=== PATIENT | female | born 1945 | race Caucasian/White ===

== ENCOUNTER 2016-05-04 12:02 | Inpatient (IN) | payer OTHER, BC ==
[2016-05-04 12:29] VITALS: BMI 26.4
[2016-05-04] MEDS ORDERED: SODIUM CHLORIDE 1,000 ML IV STA (12:52)
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
[2016-05-04 14:03] LABS: BASOPHIL 0.3 % (0-2.0); MCH 30.5 pg (25.7-33.7); MCHC 32.5 g/dl (32.0-36.0); MEAN CELL VOLUME 93.8 fl (80-96); MEAN PLT VOLUME 8.3 fl (7.5-11.1); NEUTROPHILS 85.5 % (42.8-82.8); PLATELET COUNT 235 K/MM3 (134-434); RDW 15.8 % (11.6-15.6); WHITE BLOOD COUNT 16.9 K/mm3 (4.0-10.0)
[2016-05-04 14:11] LABS: URINE APPEARANCE CLOUDY; URINE BILIRUBIN NEGATIVE (NEGATIVE); URINE COLOR YELLOW; URINE GLUCOSE (UA) 3+ (NEGATIVE); URINE KETONE 1+ (NEGATIVE); URINE LEUK ESTERASE NEGATIVE (NEGATIVE); URINE NITRITE NEGATIVE (NEGATIVE); URINE UROBILINOGEN NEGATIVE E.U./dl (0.2-1.0)
[2016-05-04 14:14] LABS: URINE BLOOD 2+ (NEGATIVE); URINE PROTEIN 2+ (NEGATIVE)
[2016-05-04 14:17] LABS: YEAST MANY
[2016-05-04 14:26] LABS: ALBUMIN 2.7 g/dl (3.4-5.0); ANION GAP 19 (8-16); BILIRUBIN,TOTAL 1.5 mg/dL (0.2-1.0); CALCIUM 8.9 mg/dL (8.5-10.1); CO2 19 mmol/L (21-32); CREATININE 1.8 mg/dL (0.55-1.02); GLUCOSE,RANDOM 266 mg/dL (74-106); SGOT/AST 103 U/L (15-37); SGPT/ALT 42 U/L (12-78); TOT PROT 6.8 g/dl (6.4-8.2)
[2016-05-04 14:39] LABS: ALK PHOS 80 U/L (45-117); TROPONIN I 0.02 ng/ml (0.00-0.05)
[2016-05-04 15:39] LABS: ACETONE SERUM POSITIVE SMALL 1+ (NEGATIVE)
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
--- NOTE | 2016-05-04 18:47 | PN ---
Teaching Attending Note Name of Resident: Reshma Wood ATTENDING PHYSICIAN STATEMENT I saw and evaluated the patient. I reviewed the resident's note and discussed the case with the resident. I agree with the resident's findings and plan as documented. SUBJECTIVE: OBJECTIVE: Vital Signs Period Temp Pulse Resp BP Sys/Villatoro Pulse Ox Last 24 Hr 0/0 ASSESSMENT AND PLAN: 1. Acute kidney injury 2. Rhabdomyolysis 3. Acute delirium 4. CAD 5. HTN 6. Type 2 DM
[2016-05-04] MEDS ORDERED: NITROGLYCERIN SUBLINGUAL 1/150 0.4 MG TAB SL PRN (18:58)
--- NOTE | 2016-05-04 21:24 | EKG ---
Test Reason : Blood Pressure : / mmHG Vent. Rate : 120 BPM Atrial Rate : 120 BPM P-R Int : 132 ms QRS Dur : 086 ms QT Int : 316 ms P-R-T Axes : 047 015 -07 degrees QTc Int : 446 ms SINUS TACHYCARDIA POSSIBLE ANTERIOR INFARCT , AGE UNDETERMINED T WAVE ABNORMALITY, CONSIDER INFERIOR ISCHEMIA ABNORMAL ECG NO PREVIOUS ECGS AVAILABLE Confirmed by FAVIAN ANDERSON MD ([id number]) on 05/04/2016 9:23:56 PM Referred By: Confirmed By:FAVIAN ANDERSON MD
[2016-05-04] MEDS: HEPARIN NA (PORCINE) 5,000 UNITS/ML 1ML VIAL SQ SCH (21:55)
[2016-05-04] MEDS: SODIUM CHLORIDE 1,000 ML IV SCH (21:56)
[2016-05-04] MEDS ORDERED: ROSUVASTATIN CA 10 MG TABLET (FP) PO SCH (22:00)
[2016-05-04] MEDS: ACETAMINOPHEN 500 MG TABLET (FP) PO PRN (22:26)
[2016-05-04 22:51] LABS: CALCIUM 8.9 mg/dL (8.5-10.1); CREATININE 1.5 mg/dL (0.55-1.02)
[2016-05-05] MEDS: LEVOTHYROXINE NA 50 MCG TABLET (FP) PO SCH (06:30)
[2016-05-05] MEDS: HEPARIN NA (PORCINE) 5,000 UNITS/ML 1ML VIAL SQ SCH ×3 (06:31→21:33)
[2016-05-05 07:16] LABS: BASOPHIL 0.3 % (0-2.0); EOSINOPHIL 0.4 % (0-4.5); MCH 30.8 pg (25.7-33.7); MCHC 33.1 g/dl (32.0-36.0); MEAN PLT VOLUME 8.2 fl (7.5-11.1); NEUTROPHILS 80.8 % (42.8-82.8); PLATELET COUNT 200 K/MM3 (134-434); RDW 16.1 % (11.6-15.6); WHITE BLOOD COUNT 11.3 K/mm3 (4.0-10.0)
[2016-05-05 07:45] LABS: ALBUMIN 2.1 g/dl (3.4-5.0)
[2016-05-05 07:48] LABS: BILIRUBIN,TOTAL 1.3 mg/dL (0.2-1.0); CREATININE 1.2 mg/dL (0.55-1.02); PHOSPHOROUS 3.2 mg/dL (2.5-4.9); TOT PROT 5.7 g/dl (6.4-8.2)
[2016-05-05] MEDS ORDERED: PT OWN MED DRAWER 7, Y5N ONE (09:47)
[2016-05-05] MEDS: ATENOLOL 25 MG TABLET (FP) PO SCH (09:51)
[2016-05-05] MEDS: FOLIC ACID 1 MG TABLET (FP) PO SCH (09:51)
[2016-05-05] MEDS ORDERED: PATIENT'S OWN MEDICATION (NON-FORMULARY) (Colesevelam Hcl [Welchol (Nf)] 625 MG) PO SCH (10:00)
[2016-05-05] MEDS ORDERED: BROMOCRIPTINE MESYLATE PO SCH (10:00)
[2016-05-05] MEDS: LISINOPRIL 5 MG TABLET (FP) PO SCH (10:00)
[2016-05-05] MEDS ORDERED: MILNACIPRAN HCL 100 MG PO SCH (10:00)
[2016-05-05 10:12] LABS: FREE T4 1.13 ng/dl (0.76-1.46); THYROID STIMULATING HORMONE 1.6 uIU/ml (0.358-3.74)
[2016-05-05] MEDS: NORTRIPTYLINE HCL 25 MG CAPSULE PO SCH (11:43)
--- NOTE | 2016-05-05 14:33 | PN ---
Physical Exam: SUBJECTIVE: Patient seen and examined feels better than yesterday. denies chest/hip pain, cough, sob. has good appetite, toileting without difficulty, no BM today. OBJECTIVE: Vital Signs Period Temp Pulse Resp BP Sys/Villatoro Pulse Ox Last 24 Hr 97.6 F-100.0 F 100-113 18-18 113-141/55-85 95-98 GENERAL: The patient is awake, alert, and fully oriented, in no acute distress. HEAD: Normal with no signs of trauma. EYES: PERRL, extraocular movements intact, sclera anicteric, conjunctiva clear. No ptosis. ENT: Ears normal, nares patent, oropharynx clear without exudates, mild erythema , moist mucous membranes. thick neck. well healed scar on left lower neck. no LAD. NECK: Trachea midline, full range of motion, supple. LUNGS: Breath sounds equal, clear to auscultation bilaterally, no wheezes, no crackles, no accessory muscle use. HEART: tachycardic rate and regular rhythm, S1, S2 without murmur, rub or gallop. ABDOMEN: Soft, nontender, distended, normoactive bowel sounds, no guarding, no rebound EXTREMITIES: UE: 2+ pulses, warm, well-perfused, no edema. skin mottling improved. unable to make fist b/l. sensation intact throughout. improved range of motion at shoulders, elbow. strength 4/5 at biceps/triceps. b/l elbows with lacerations, left elbow with demuted skin, mild surrounding erythema no discharge no fluctuance. left hand with 3rd digit PCP & MCP joint, 4th MCP joint with swelling/erythema/tenderness. LE: 2+ pulses, warm, well-perfused. No calf tenderness. hammertoe on 2nd digit on right and left foot. skin mottling from feet to knees improved. b/l knee swelling and tenderness. 3/5 strength b/l legs. nontender lateral & medial hips. sensation intact throughout. NEUROLOGICAL: Cranial nerves II through XII grossly intact. Normal speech, gait steady with walker and 2-person support. PSYCH: Normal mood, normal affect. Decub ulcer covered with actagal. Laboratory Results - last 24 hr 05/04/16 05/04/16 05/04/16 21:00 21:00 21:00 WBC RBC Hgb Hct MCV MCHC RDW Plt Count MPV Neutrophils % Lymphocytes % Monocytes % Eosinophils % Basophils % Sodium 136 Potassium 4.1 Chloride 101 Carbon Dioxide 17 L Anion Gap 18 H BUN 50 H Creatinine 1.5 H Creat Clearance w eGFR Random Glucose 199 H D Hemoglobin A1c % 7.7 H Calcium 8.9 Phosphorus Magnesium Total Bilirubin AST ALT Alkaline Phosphatase C-Reactive Protein 36.4 H Total Protein Albumin TSH Free T4 Acetone, Qual 05/05/16 05/05/16 05/05/16 05:35 05:35 05:35 WBC 11.3 H D RBC 3.47 L Hgb 10.7 D Hct 32.3 L MCV 93.0 MCHC 33.1 RDW 16.1 H Plt Count 200 MPV 8.2 Neutrophils % 80.8 Lymphocytes % 8.8 D Monocytes % 9.7 Eosinophils % 0.4 D Basophils % 0.3 Sodium 140 Potassium 3.8 Chloride 107 Carbon Dioxide 20 L Anion Gap 13 BUN 44 H Creatinine 1.2 H Creat Clearance w eGFR 44.41 Random Glucose 163 H Hemoglobin A1c % Calcium 8.0 L Phosphorus 3.2 Magnesium 2.0 Total Bilirubin 1.3 H AST 75 H D ALT 37 Alkaline Phosphatase 71 C-Reactive Protein Total Protein 5.7 L Albumin 2.1 L D TSH 1.60 Free T4 1.13 Acetone, Qual Positive moderate 2+ H Active Medications Generic Name Dose Route Start Last Admin Trade Name Charlesq PRN Reason Stop Dose Admin Acetaminophen 1,000 mg 05/04/16 21:00 05/04/16 22:26 Tylenol - PO 1,000 mg Q6H PRN Administration FEVER OR PAIN Atenolol 25 mg 05/05/16 10:00 05/05/16 09:51 Tenormin - PO 25 mg DAILY DASHA Administration Folic Acid 1 mg 05/05/16 10:00 05/05/16 09:51 Folic Acid - PO 1 mg DAILY DASHA Administration Heparin Sodium (Porcine) 5,000 unit 05/04/16 22:00 05/05/16 06:31 Heparin - SQ 5,000 unit TID DASHA Administration Sodium Chloride 1,000 mls @ 150 mls/hr 05/04/16 17:30 05/04/16 21:56 Normal Saline - IV 150 mls/hr ASDIR DASHA Administration Levothyroxine Sodium 50 mcg 05/05/16 07:00 05/05/16 06:30 Synthroid - PO 50 mcg DAILY@0700 DASHA Administration Lisinopril 2.5 mg 05/05/16 10:00 05/05/16 10:00 Prinivil PO 2.5 mg DAILY DASHA Administration Nitroglycerin 0.4 mg 05/04/16 18:58 Nitrostat - SL PRN PRN FOR CHEST PAIN Non-Formulary Medication 4.8 mg 05/05/16 10:00 Bromocriptine Mesylate [Cycloset] PO DAILY DASHA Non-Formulary Medication 625 mg 05/05/16 10:00 Colesevelam Hcl [Welchol (Nf)] PO DAILY DASHA Non-Formulary Medication 100 mg 05/05/16 10:00 Milnacipran Hcl [Savella] PO DAILY DASHA Nortriptyline HCl 25 mg 05/05/16 10:00 05/05/16 11:43 Pamelor - PO 25 mg DAILY DASHA Administration Rosuvastatin Calcium 10 mg 05/04/16 22:00 05/04/16 21:55 Crestor - PO 10 mg HS DASHA Administration ASSESSMENT/PLAN: Discussed mental changes with Dr. Benson at [facility], patient does not have a history of drug use, psychosis, mental illness. He has never heard her discuss a "boyfriend", abuse from her , or 's abuse by his family. As far he is aware, they have a healthy happy marriage. She is his primary idea man and they both always call dr. Benson if either have any medical issue right away, Dr. Benson was surprised they waited several days before coming to the hospital. He last saw her in early March for routine follow-up and there was no concerns at that time. 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 - pelvic xray without fracture, physical therapy consult - rapid strep throat cx to r/o strep throat - negative for rapid strep #Acute delirium - unclear etiology, infection causing delirum in elderly patient vs acute psychosis vs encephalopathy vs drug induced - Head CT neg for mass, infarct, or fracture - TSH normal, T4 normal, unlikely metabolic cause - psych consulted for further evaluation #Acute kidney injury - unknown baseline - given high BUN and hx of poor intake, likely pre-renal cause - urine sodium, urea, creatinine - avoid nephrotoxin meds for now #Rhabdomyolysis - elevated creatine kinase and blood in urine, CK improved, continue IVF till tomorrow - likely from immobility - IVF NS 150mls/hr #rheumatoid arthritis - given joint swelling in hands, crp elevated, - monoarticular, will monitor for now, will hold off on steriod use given acute psychosis and rhabdo #CAD s/p stents - rosuvastatin - will hold for now given rhabdo - nitroglycerine - 0.4 subl prn - welchol #HTN - lisinopril 2.5 mg daily - atenolol 25mg po daily #NIDDM - BGM ACHS - NISS - hold oral hypoglycemics - Jardiance 10mg 1 po daily, glipizide XL 10mg 2 tabs once daily, Cycloset 0.8mg 6tabs once daily with food, Janument 2tabs once daily with food #hypothyroidism - levothyroxine 50mcg 1 tab daily Fribromyalgia: Savella 2tabs 50mg (total 100mg)BID nortryptiline 25mg capsule 1 tab HS #Decub ulcer - stage 2, cover with actagal #DVT: hep TID #Diet: low sodum/diabetic CODE STATUS: FULL CODE Visit type - Emergency Visit Emergency Visit: No - New Patient This patient is new to me today: No - Critical Care Critical Care patient: No
--- NOTE | 2016-05-05 16:29 | PN ---
Teaching Attending Note Name of Resident: Reshma Wood ATTENDING PHYSICIAN STATEMENT I saw and evaluated the patient. I reviewed the resident's note and discussed the case with the resident. I agree with the resident's findings and plan as documented. SUBJECTIVE: Vital Signs - 24 hr 05/04/16 05/04/16 05/04/16 20:30 21:00 22:00 Temperature 100.0 F H 99.0 F Pulse Rate 112 H Respiratory 18 Rate Blood Pressure 137/85 O2 Sat by Pulse 98 98 Oximetry (%) 05/05/16 05/05/16 05/05/16 02:00 06:00 10:00 Temperature 97.7 F 97.8 F Pulse Rate 113 H 106 H 110 H Respiratory 18 18 18 Rate Blood Pressure 119/55 113/62 141/71 O2 Sat by Pulse 95 Oximetry (%) 05/05/16 14:00 Temperature 97.6 F Pulse Rate 100 H Respiratory 18 Rate Blood Pressure 124/63 O2 Sat by Pulse Oximetry (%) OBJECTIVE:NECK: Normal range of motion, supple without lymphadenopathy, JVD, or masses. thick neck LUNGS: scattered rhonchi, No wheezes, and no crackles. No accessory muscle use. BREAST: b/l implants, left implant firm, soft right implant. overlying skin intact, no nipple discharge. HEART: tachycardic and regular rhythm, normal S1 and S2 without murmur, rub or gallop. ABDOMEN: Soft, diffusely tender, distended, hypoactive bowel sounds, no guarding , no rebound, no masses. suprapubic tenderness. MUSCULOSKELETAL: Normal range of motion at all joints. No bony deformities or tenderness. No CVA tenderness. UPPER EXTREMITIES: 2+ pulses, warm, well-perfused. No cyanosis. No clubbing. No peripheral edema. b/l elbows with lacerations, left elbow with demuted skin, mild surrounding erythema no discharge no fluctuance. b/l skin mottling on forearms. left hand with 3rd digit PCP & MCP joint, 4th MCP joint with swelling/ erythema/tenderness. right thumb MCP joint with tenderness. unable to make a fist. limited range of motion at shoulders due to pain, 3/4 strength at biceps/ triceps. Laboratory 05/04/16 05/04/16 05/04/16 13:54 13:54 13:54 WBC 16.9 K/mm3 H K/mm3 (4.0-10.0) RBC 4.00 M/mm3 M/mm3 (3.60-5.2) Hgb 12.2 GM/dL GM/dL (10.7-15.3) Hct 37.5 % % (32.4-45.2) MCV 93.8 fl fl (80-96) MCHC 32.5 g/dl g/dl (32.0-36.0) RDW 15.8 % H % (11.6-15.6) Plt Count 235 K/MM3 K/MM3 (134-434) MPV 8.3 fl fl (7.5-11.1) Neutrophils % 85.5 % H % (42.8-82.8) Lymphocytes % 5.6 % L % (8-40) Monocytes % 8.6 % % (3.8-10.2) Eosinophils % 0.0 % % (0-4.5) Basophils % 0.3 % % (0-2.0) Sodium 135 mmol/L L mmol/L (136-145) Potassium 4.4 mmol/L mmol/L (3.5-5.1) Chloride 97 mmol/L L mmol/L (98-107) Carbon Dioxide 19 mmol/L L mmol/L (21-32) Anion Gap 19 H (8-16) BUN 51 mg/dL H mg/dL (7-18) Creatinine 1.8 mg/dL H mg/dL (0.55-1.02) Creat Clearance w eGFR 27.82 (>60) Random Glucose 266 mg/dL H mg/dL (74-106) Hemoglobin A1c % Calcium 8.9 mg/dL mg/dL (8.5-10.1) Phosphorus Magnesium Total Bilirubin 1.5 mg/dL H mg/dL (0.2-1.0) AST 103 U/L H U/L (15-37) ALT 42 U/L U/L (12-78) Alkaline Phosphatase 80 U/L U/L (45-117) Creatine Kinase 1514 IU/L H IU/L (26-192) Creatine Kinase Index 1.1 % % (0.0-5.0) CK-MB (CK-2) 16.504 ng/ml H ng/ml (0.5-3.6) Troponin I 0.02 ng/ml ng/ml (0.00-0.05) C-Reactive Protein B-Natriuretic Peptide 2254.55 pg/ml H pg/ml (5-125) Total Protein 6.8 g/dl g/dl (6.4-8.2) Albumin 2.7 g/dl L g/dl (3.4-5.0) TSH Free T4 Urine Color Yellow Urine Appearance Cloudy Urine pH 5.0 (5.0-8.0) Ur Specific [place] 1.021 (1.001-1.035) Urine Protein 2+ H (NEGATIVE) Urine Glucose (UA) 3+ H (NEGATIVE) Urine Ketones 1+ H (NEGATIVE) Urine Blood 2+ H (NEGATIVE) Urine Nitrite Negative (NEGATIVE) Urine Bilirubin Negative (NEGATIVE) Urine Urobilinogen Negative E.U./dl E.U./dl (0.2-1.0) Ur Leukocyte Esterase Negative (NEGATIVE) Urine RBC None /hpf /hpf (0-3) Urine WBC None /hpf /hpf (3-5) Urine Yeast Many Acetone, Qual Positive small 1+ H (NEGATIVE) 05/04/16 05/04/16 05/04/16 21:00 21:00 21:00 WBC RBC Hgb Hct MCV MCHC RDW Plt Count MPV Neutrophils % Lymphocytes % Monocytes % Eosinophils % Basophils % Sodium 136 mmol/L mmol/L (136-145) Potassium 4.1 mmol/L mmol/L (3.5-5.1) Chloride 101 mmol/L mmol/L (98-107) Carbon Dioxide 17 mmol/L L mmol/L (21-32) Anion Gap 18 H (8-16) BUN 50 mg/dL H mg/dL (7-18) Creatinine 1.5 mg/dL H mg/dL (0.55-1.02) Creat Clearance w eGFR Random Glucose 199 mg/dL H D mg/dL (74-106) Hemoglobin A1c % 7.7 % H % (4.8-6.0) Calcium 8.9 mg/dL mg/dL (8.5-10.1) Phosphorus Magnesium Total Bilirubin AST ALT Alkaline Phosphatase Creatine Kinase Creatine Kinase Index CK-MB (CK-2) Troponin I C-Reactive Protein 36.4 MG/DL H MG/DL (0.00-0.3) B-Natriuretic Peptide Total Protein Albumin TSH Free T4 Urine Color Urine Appearance Urine pH Ur Specific [place] Urine Protein Urine Glucose (UA) Urine Ketones Urine Blood Urine Nitrite Urine Bilirubin Urine Urobilinogen Ur Leukocyte Esterase Urine RBC Urine WBC Urine Yeast Acetone, Qual 05/05/16 05/05/16 05/05/16 05:35 05:35 05:35 WBC 11.3 K/mm3 H D K/mm3 (4.0-10.0) RBC 3.47 M/mm3 L M/mm3 (3.60-5.2) Hgb 10.7 GM/dL D GM/dL (10.7-15.3) Hct 32.3 % L % (32.4-45.2) MCV 93.0 fl fl (80-96) MCHC 33.1 g/dl g/dl (32.0-36.0) RDW 16.1 % H % (11.6-15.6) Plt Count 200 K/MM3 K/MM3 (134-434) MPV 8.2 fl fl (7.5-11.1) Neutrophils % 80.8 % % (42.8-82.8) Lymphocytes % 8.8 % D % (8-40) Monocytes % 9.7 % % (3.8-10.2) Eosinophils % 0.4 % D % (0-4.5) Basophils % 0.3 % % (0-2.0) Sodium 140 mmol/L mmol/L (136-145) Potassium 3.8 mmol/L mmol/L (3.5-5.1) Chloride 107 mmol/L mmol/L (98-107) Carbon Dioxide 20 mmol/L L mmol/L (21-32) Anion Gap 13 (8-16) BUN 44 mg/dL H mg/dL (7-18) Creatinine 1.2 mg/dL H mg/dL (0.55-1.02) Creat Clearance w eGFR 44.41 (>60) Random Glucose 163 mg/dL H mg/dL (74-106) Hemoglobin A1c % Calcium 8.0 mg/dL L mg/dL (8.5-10.1) Phosphorus 3.2 mg/dL mg/dL (2.5-4.9) Magnesium 2.0 mg/dL mg/dL (1.8-2.4) Total Bilirubin 1.3 mg/dL H mg/dL (0.2-1.0) AST 75 U/L H D U/L (15-37) ALT 37 U/L U/L (12-78) Alkaline Phosphatase 71 U/L U/L (45-117) Creatine Kinase 767 IU/L H D IU/L (26-192) Creatine Kinase Index CK-MB (CK-2) Troponin I C-Reactive Protein B-Natriuretic Peptide Total Protein 5.7 g/dl L g/dl (6.4-8.2) Albumin 2.1 g/dl L D g/dl (3.4-5.0) TSH 1.60 uIU/ml uIU/ml (0.358-3.74) Free T4 1.13 ng/dl ng/dl (0.76-1.46) Urine Color Urine Appearance Urine pH Ur Specific [place] Urine Protein Urine Glucose (UA) Urine Ketones Urine Blood Urine Nitrite Urine Bilirubin Urine Urobilinogen Ur Leukocyte Esterase Urine RBC Urine WBC Urine Yeast Acetone, Qual Positive moderate 2+ H (NEGATIVE) ASSESSMENT AND PLAN: #Acute encephalopathy vs acute psychosis - unclear etiology, now mostly resolved. Etiology unknown. Head CT is negative,TFT normal. - psych consulted for further evaluation - UDS # Acute Rhabdomyolysis - elevated creatine kinase and blood in urine, likely secondary to fall at home -c/w IVF NS 150mls/hr -monitor CK and renal function #rheumatoid arthritis - given joint swelling in hands, crp elevated, - monoarticular, will monitor for now, will hold off on steriod use given acute psychosis and rhabdo #CAD s/p stents - rosuvastatin - will hold for now given rhabdo - nitroglycerine - 0.4 subl prn - welchol #HTN - lisinopril 2.5 mg daily - atenolol 25mg po daily #NIDDM - BGM ACHS - NISS - hold oral hypoglycemics - Jardiance 10mg 1 po daily, glipizide XL 10mg 2 tabs once daily, Cycloset 0.8mg 6tabs once daily with food, Janument 2tabs once daily with food
[2016-05-05] MEDS: SODIUM CHLORIDE 1,000 ML IV SCH (21:32)
[2016-05-05] MEDS ORDERED: DOCUSATE SODIUM 100 MG CAPSULE (FP) PO SCH (22:00)
[2016-05-05] MEDS: ACETAMINOPHEN 500 MG TABLET (FP) PO PRN (23:14)
[2016-05-06 00:25] LABS: HIV 1 & 2 AB NEGATIVE; HIV 1 AGp24 NEGATIVE
[2016-05-06] MEDS: HEPARIN NA (PORCINE) 5,000 UNITS/ML 1ML VIAL SQ SCH ×2 (06:02→14:08)
[2016-05-06] MEDS: LEVOTHYROXINE NA 50 MCG TABLET (FP) PO SCH (06:02)
[2016-05-06 07:37] LABS: BASOPHIL 0.1 % (0-2.0); EOSINOPHIL 0.4 % (0-4.5); MCH 30.9 pg (25.7-33.7); MCHC 33.3 g/dl (32.0-36.0); MEAN PLT VOLUME 8.2 fl (7.5-11.1); NEUTROPHILS 81.6 % (42.8-82.8); PLATELET COUNT 185 K/MM3 (134-434); RDW 15.7 % (11.6-15.6); WHITE BLOOD COUNT 9.5 K/mm3 (4.0-10.0)
[2016-05-06 08:22] LABS: ALBUMIN 2.2 g/dl (3.4-5.0); ANION GAP 12 (8-16); BILIRUBIN,TOTAL 1.2 mg/dL (0.2-1.0); CALCIUM 8.2 mg/dL (8.5-10.1); CO2 20 mmol/L (21-32); GLUCOSE,RANDOM 264 mg/dL (74-106); SGOT/AST 167 U/L (15-37); SGPT/ALT 98 U/L (12-78)
[2016-05-06 08:24] LABS: ALK PHOS 181 U/L (45-117); CREATININE 1.1 mg/dL (0.55-1.02); TOT PROT 6.1 g/dl (6.4-8.2)
[2016-05-06 08:42] LABS: TROPONIN I < 0.02 ng/ml (0.00-0.05)
[2016-05-06] MEDS: ATENOLOL 25 MG TABLET (FP) PO SCH (10:11)
[2016-05-06] MEDS: LISINOPRIL 5 MG TABLET (FP) PO SCH (10:11)
[2016-05-06] MEDS: NORTRIPTYLINE HCL 25 MG CAPSULE PO SCH (10:11)
[2016-05-06] MEDS: FOLIC ACID 1 MG TABLET (FP) PO SCH (10:11)
[2016-05-06] MEDS ORDERED: IBUPROFEN 600 MG TABLET (FP) PO PRN (11:34)
[2016-05-06] MEDS ORDERED: ACETAMINOPHEN 325 MG TABLET (FP) PO ONE (11:39)
[2016-05-06] MEDS ORDERED: predniSONE 5 MG TABLET (UD) PO SCH (11:45)
--- NOTE | 2016-05-06 11:47 | PN ---
Physical Exam: SUBJECTIVE: Patient seen and examined Has been passing gas, eating, had small BM yesterday morning without blood. OBJECTIVE: Vital Signs Period Temp Pulse Resp BP Sys/Villatoro Pulse Ox Last 24 Hr 96.5 F-99.1 F 89-102 16-18 120-141/47-63 96 GENERAL: The patient is awake, alert, and fully oriented, in no acute distress. EYES: PERRL, extraocular movements intact, sclera anicteric, conjunctiva clear. No ptosis. ENT: Ears normal, nares patent, oropharynx clear without exudates, mild erythema , moist mucous membranes. thick neck. well healed scar on left lower neck. no LAD. NECK: Trachea midline, full range of motion, supple. LUNGS: Breath sounds equal, clear to auscultation bilaterally, no wheezes, no crackles, no accessory muscle use. HEART: normal rate and regular rhythm, S1, S2 without murmur, rub or gallop. ABDOMEN: Soft, mildly diffusely tender, distended, normoactive bowel sounds, no guarding, no rebound EXTREMITIES: UE: 2+ pulses, warm, well-perfused. unable to make fist b/l. sensation intact throughout. improved range of motion at shoulders, elbow. strength 4/5 at biceps /triceps. b/l elbows with lacerations, left elbow with demuted skin, mild surrounding erythema no discharge no fluctuance. left hand with 3rd digit PCP & MCP joint, 4th MCP joint with swelling/erythema/tenderness. mild ulnar deviation of b/l MCP joints. LE: 2+ pulses, warm, well-perfused. No calf tenderness. hammertoe on 2nd digit on right and left foot. mild skin mottling medial lower legs. b/l knee swelling , warmth, and tenderness. ankle swelling/erythema/tenderness/warmth. 3/5 strength b/l legs. sensation intact throughout. NEUROLOGICAL: Normal speech PSYCH: Normal mood, normal affect. Decub ulcer covered with actagal. Laboratory Results - last 24 hr 05/05/16 05/05/16 05/05/16 05:35 21:30 21:30 WBC RBC Hgb Hct MCV MCHC RDW Plt Count MPV Neutrophils % Lymphocytes % Monocytes % Eosinophils % Basophils % Sodium Potassium Chloride Carbon Dioxide Anion Gap BUN Creatinine Creat Clearance w eGFR POC Glucometer Random Glucose Calcium Total Bilirubin AST ALT Alkaline Phosphatase Creatine Kinase 767 H D Creatine Kinase Index CK-MB (CK-2) Troponin I Total Protein Albumin RPR Titer Nonreactive HIV 1&2 Antibody Screen Negative HIV P24 Antigen Negative 05/06/16 05/06/16 05/06/16 00:46 05:35 05:35 WBC 9.5 RBC 3.68 Hgb 11.4 Hct 34.2 MCV 93.0 MCHC 33.3 RDW 15.7 H Plt Count 185 MPV 8.2 Neutrophils % 81.6 Lymphocytes % 8.4 Monocytes % 9.5 Eosinophils % 0.4 Basophils % 0.1 Sodium 140 Potassium 3.7 Chloride 108 H Carbon Dioxide 20 L Anion Gap 12 BUN 33 H D Creatinine 1.1 H Creat Clearance w eGFR 49.10 POC Glucometer 325 Random Glucose 264 H D Calcium 8.2 L Total Bilirubin 1.2 H AST 167 H D ALT 98 H D Alkaline Phosphatase 181 H D Creatine Kinase 581 H D Creatine Kinase Index 0.6 CK-MB (CK-2) 3.251 Troponin I < 0.02 Total Protein 6.1 L Albumin 2.2 L RPR Titer HIV 1&2 Antibody Screen HIV P24 Antigen 05/06/16 05/06/16 05:35 11:13 WBC RBC Hgb Hct MCV MCHC RDW Plt Count MPV Neutrophils % Lymphocytes % Monocytes % Eosinophils % Basophils % Sodium Potassium Chloride Carbon Dioxide Anion Gap BUN Creatinine Creat Clearance w eGFR POC Glucometer 302 Random Glucose Calcium Total Bilirubin AST ALT Alkaline Phosphatase Creatine Kinase Cancelled Creatine Kinase Index CK-MB (CK-2) Troponin I Total Protein Albumin RPR Titer HIV 1&2 Antibody Screen HIV P24 Antigen Active Medications Atenolol (Tenormin -) 25 mg PO DAILY [facility] Last Admin: 05/06/16 10:11 Dose: 25 mg Docusate Sodium (Colace -) 300 mg PO HS [facility] Last Admin: 05/05/16 21:30 Dose: 300 mg Folic Acid (Folic Acid -) 1 mg PO DAILY [facility] Last Admin: 05/06/16 10:11 Dose: 1 mg Heparin Sodium (Porcine) (Heparin -) 5,000 unit SQ TID [facility] Last Admin: 05/06/16 14:08 Dose: 5,000 unit Sodium Chloride (Normal Saline -) 1,000 mls @ 75 mls/hr IV ASDIR [facility] Ibuprofen (Motrin -) 600 mg PO Q4H PRN PRN Reason: PAIN Last Admin: 05/06/16 14:07 Dose: 600 mg Insulin Aspart (Novolog Vial Sliding Scale -) 1 vial SQ ACHS [facility] PRN Reason: Protocol Last Admin: 05/06/16 12:05 Dose: 8 units Levothyroxine Sodium (Synthroid -) 50 mcg PO DAILY@0700 [facility] Last Admin: 05/06/16 06:02 Dose: 50 mcg Lisinopril (Prinivil) 2.5 mg PO DAILY [facility] Last Admin: 05/06/16 10:11 Dose: 2.5 mg Nitroglycerin (Nitrostat -) 0.4 mg SL PRN PRN PRN Reason: FOR CHEST PAIN Non-Formulary Medication (Bromocriptine Mesylate [Cycloset]) 4.8 mg PO DAILY [facility] Non-Formulary Medication (Colesevelam Hcl [Welchol (Nf)]) 625 mg PO DAILY [facility] Non-Formulary Medication (Milnacipran Hcl [Savella]) 100 mg PO DAILY [facility] Nortriptyline HCl (Pamelor -) 25 mg PO DAILY [facility] Last Admin: 05/06/16 10:11 Dose: 25 mg Prednisone (Deltasone -) 5 mg PO DAILY [facility] Last Admin: 05/06/16 14:08 Dose: 5 mg Rosuvastatin Calcium (Crestor -) 10 mg PO HS [facility] Last Admin: 05/04/16 21:55 Dose: 10 mg Senna (Senna -) 1 tab PO BID [facility] ASSESSMENT/PLAN: 70 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 - cousin's patient came to visit yesterday evening and discussed with nurse; confirmed that patient does have a boyfriend for past 17 yrs who was found to be a sex addict with multiple partners. - elevated LFT's likely from tylenol 1 gram IV last night #Fever - bld, urine cx, rapid flu nasal swab ordered. - lungs are CTAB, patient denies dysuria, no diarrhea, no URI symptoms, low suspicion for infectious cause. - given multiple joints with inflammation concern for inflammatory cause of fever, started on prednisone 5mg po and motrin #Acute delirium - unclear etiology, infection causing delirum in elderly patient vs acute psychosis vs encephalopathy vs drug induced - Brain MRI to evaluate for ischemia - mentation has improved but still unclear what caused intial fall or delirium - psych consulted for further evaluation - however psych has not seen patient #Acute kidney injury improved with IVF - urine sodium, urea, creatinine for further eval #rheumatoid arthritis - likely given multiple joints with erythema and warmth - 5mg prednisone - motrin 600mg po q4hr #Rhabdomyolysis - improved #CAD s/p stents - rosuvastatin - will hold for now given rhabdo - nitroglycerine - 0.4 subl prn - welchol ([facility] - has not received it) #HTN - lisinopril 2.5 mg daily - atenolol 25mg po daily #NIDDM - BGM ACHS - NISS - hold oral hypoglycemics - Jardiance 10mg 1 po daily, glipizide XL 10mg 2 tabs once daily, Cycloset 0.8mg 6tabs once daily with food, Janument 2tabs once daily with food #hypothyroidism - levothyroxine 50mcg 1 tab daily Fribromyalgia: Savella 2tabs 50mg (total 100mg)BID ([facility] has not received it) nortryptiline 25mg capsule 1 tab HS #Decub ulcer - stage 2, cover with actagal #DVT: hep TID #Diet: low sodum/diabetic CODE STATUS: FULL CODE Visit type - Emergency Visit Emergency Visit: No - New Patient This patient is new to me today: No - Critical Care Critical Care patient: No - Discharge Referral Referred to [facility] No
[2016-05-06] MEDS: INSULIN SLIDING SCALE (NOVOLOG) 1 VIAL SQ SCH ×2 (12:05→17:50)
[2016-05-06] MEDS ORDERED: SODIUM CHLORIDE 1,000 ML IV SCH (14:45)
--- NOTE | 2016-05-06 15:36 | PN ---
Teaching Attending Note Name of Resident: Reshma Wood ATTENDING PHYSICIAN STATEMENT I saw and evaluated the patient. I reviewed the resident's note and discussed the case with the resident. I agree with the resident's findings and plan as documented. SUBJECTIVE:c/o b/l knee pain OBJECTIVE: Vital Signs Temp 101 F H 05/06/16 10:00 Pulse 98 H 05/06/16 10:00 Resp 18 05/06/16 10:00 BP 141/66 05/06/16 10:00 Pulse Ox 95 05/06/16 10:00 Intake & Output 05/05/16 05/06/16 05/06/16 23:59 11:59 23:59 Intake Total 690 300 Balance 690 300 Intake: Oral 690 300 Other: Voiding Method Diaper Diaper # Unmeasured Voids Void 2 2 Bowel Movement No Yes # Bowel Movements 1 GENERAL: The patient is awake, alert, and fully oriented, in no acute distress. EYES: PERRL, extraocular movements intact, sclera anicteric, conjunctiva clear. No ptosis. ENT: Ears normal, nares patent, oropharynx clear without exudates, mild erythema , moist mucous membranes. thick neck. well healed scar on left lower neck. no LAD. NECK: Trachea midline, full range of motion, supple. LUNGS: Breath sounds equal, clear to auscultation bilaterally, no wheezes, no crackles, no accessory muscle use. HEART: normal rate and regular rhythm, S1, S2 without murmur, rub or gallop. ABDOMEN: Soft, mildly diffusely tender, distended, normoactive bowel sounds, no guarding, no rebound EXTREMITIES: UE: 2+ pulses, warm, well-perfused. unable to make fist b/l. sensation intact throughout. improved range of motion at shoulders, elbow. strength 4/5 at biceps /triceps. b/l elbows with lacerations, left elbow with demuted skin, mild surrounding erythema no discharge no fluctuance. left hand with 3rd digit PCP & MCP joint, 4th MCP joint with swelling/erythema/tenderness. mild ulnar deviation of b/l MCP joints. LE: 2+ pulses, warm, well-perfused. No calf tenderness. hammertoe on 2nd digit on right and left foot. mild skin mottling medial lower legs. b/l knee swelling , warmth, and tenderness. ankle swelling/erythema/tenderness/warmth. 3/5 strength b/l legs. sensation intact throughout. NEUROLOGICAL: Normal speech PSYCH: Normal mood, normal affect. Decub ulcer covered with actagal. CBC, BMP 05/06/16 05:35 05/06/16 05:35 ASSESSMENT AND PLAN: #Acute encephalopathy vs acute psychosis - unclear etiology, now mostly resolved. Dysarthria noted. Head CT is negative,TFT normal. - psych consulted for further evaluation - UDS # Acute Rhabdomyolysis - elevated creatine kinase and blood in urine, likely secondary to fall at home , now improving -d/c fluids due to edema -encouraged PO fluids -monitor CK and renal function #rheumatoid arthritis - given joint swelling in hands, crp elevated, - start NSAIDS and prednisione #Fever- r/o sepsis, poss due to arthritis -UA -blood culture #CAD s/p stents - rosuvastatin - will hold for now given rhabdo - nitroglycerine - 0.4 subl prn - welchol #HTN - lisinopril 2.5 mg daily - atenolol 25mg po daily #NIDDM - BGM ACHS - NISS - hold oral hypoglycemics - Jardiance 10mg 1 po daily, glipizide XL 10mg 2 tabs once daily, Cycloset 0.8mg 6tabs once daily with food, Janument 2tabs once daily with food
[2016-05-06] MEDS ORDERED: CHOLESTYRAMINE/ASPARTAME 4 GM PACKET PO SCH (16:15)
[2016-05-06] MEDS ORDERED: DULoxetine HCL 30 MG CAPSULE.DR (FP) PO SCH (16:15)
[2016-05-06] MEDS ORDERED: INSULIN (NOVOLOG) ASPART 100 UNITS/ML 10ML VIAL ONE (16:28)
[2016-05-06 18:52] VITALS: BP 110/41; PULSE 91; TEMP 98
--- NOTE | 2016-05-06 19:18 | DS ---
Physical Exam: SUBJECTIVE: Patient seen. Declined further evaluation, treatment, testing of medical condition. OBJECTIVE: Vital Signs Period Temp Pulse Resp BP Sys/Villatoro Pulse Ox Last 24 Hr 96.5 F-101.4 F 88-99 16-20 110-141/41-66 95-96 Selected Entries 05/06/16 05/06/16 05/06/16 08:38 10:00 15:49 Temperature 96.5 F L 101 F H 101.4 F H Temperature Rectal Rectal Source Pulse Rate 99 H 98 H Blood Pressure 141/63 126/58 LABS Laboratory Results - last 24 hr Laboratory Tests 05/04/16 05/04/16 05/04/16 13:54 13:54 13:54 WBC 16.9 H Hgb 12.2 Hct 37.5 Plt Count 235 Sodium 135 L Potassium 4.4 Chloride 97 L Carbon Dioxide 19 L BUN 51 H Creatinine 1.8 H Hemoglobin A1c % Total Bilirubin 1.5 H AST ALT 42 Alkaline Phosphatase 80 Creatine Kinase 1514 H CK-MB (CK-2) 16.504 H Troponin I 0.02 C-Reactive Protein B-Natriuretic Peptide 2254.55 H TSH Free T4 Ur Specific [place] 1.021 Urine Protein 2+ H Urine Glucose (UA) 3+ H Urine Ketones 1+ H Urine Blood 2+ H Urine Nitrite Negative Ur Leukocyte Esterase Negative Urine RBC None Urine WBC None Urine Yeast Many Acetone, Qual Positive small 1+ H 05/04/16 05/04/16 05/05/16 21:00 21:00 05:35 WBC 11.3 H D Hgb 10.7 D Hct 32.3 L Plt Count 200 Sodium Potassium Chloride Carbon Dioxide BUN Creatinine Hemoglobin A1c % 7.7 H Total Bilirubin AST ALT Alkaline Phosphatase Creatine Kinase CK-MB (CK-2) Troponin I C-Reactive Protein 36.4 H B-Natriuretic Peptide TSH Free T4 Ur Specific [place] Urine Protein Urine Glucose (UA) Urine Ketones Urine Blood Urine Nitrite Ur Leukocyte Esterase Urine RBC Urine WBC Urine Yeast Acetone, Qual 05/05/16 05/05/16 05/06/16 05:35 05:35 05:35 WBC 9.5 Hgb 11.4 Hct 34.2 Plt Count 185 Sodium 140 Potassium 3.8 Chloride Carbon Dioxide BUN 44 H Creatinine 1.2 H Hemoglobin A1c % Total Bilirubin 1.3 H AST 75 H D ALT 37 Alkaline Phosphatase 71 Creatine Kinase 767 H D CK-MB (CK-2) Troponin I C-Reactive Protein B-Natriuretic Peptide TSH 1.60 Free T4 1.13 Ur Specific [place] Urine Protein Urine Glucose (UA) Urine Ketones Urine Blood Urine Nitrite Ur Leukocyte Esterase Urine RBC Urine WBC Urine Yeast Acetone, Qual Positive moderate 2+ H 05/06/16 05:35 WBC Hgb Hct Plt Count Sodium 140 Potassium 3.7 Chloride 108 H Carbon Dioxide BUN 33 H D Creatinine 1.1 H Hemoglobin A1c % Total Bilirubin AST 167 H D ALT 98 H D Alkaline Phosphatase 181 H D Creatine Kinase 581 H D CK-MB (CK-2) Troponin I C-Reactive Protein B-Natriuretic Peptide TSH Free T4 Ur Specific [place] Urine Protein Urine Glucose (UA) Urine Ketones Urine Blood Urine Nitrite Ur Leukocyte Esterase Urine RBC Urine WBC Urine Yeast Acetone, Qual 05/06/16 05/06/16 05/06/16 05:35 05:35 05:35 WBC 9.5 RBC 3.68 Hgb 11.4 Hct 34.2 MCV 93.0 MCHC 33.3 RDW 15.7 H Plt Count 185 MPV 8.2 Neutrophils % 81.6 Lymphocytes % 8.4 Monocytes % 9.5 Eosinophils % 0.4 Basophils % 0.1 Sodium 140 Potassium 3.7 Chloride 108 H Carbon Dioxide 20 L Anion Gap 12 BUN 33 H D Creatinine 1.1 H Creat Clearance w eGFR 49.10 POC Glucometer Random Glucose 264 H D Calcium 8.2 L Total Bilirubin 1.2 H AST 167 H D ALT 98 H D Alkaline Phosphatase 181 H D Creatine Kinase 581 H D Cancelled Creatine Kinase Index 0.6 CK-MB (CK-2) 3.251 Troponin I < 0.02 Total Protein 6.1 L Albumin 2.2 L RPR Titer Nonreactive HIV 1&2 Antibody Screen negative HIV P24 Antigen negative Microbiology 05/06/16 15:15 Nasopharyngeal Swab Respiratory Virus Panel - Preliminary 05/06/16 15:15 Nasopharyngeal Swab Influenza Types A,B Antigen (TIEN) - Final 05/06/16 15:15 Nasopharyngeal Swab - Final 05/04/16 17:14 Throat Throat Culture - Final NO BETA HEMOLYTIC STREPTOCOCCI ISOLATED 05/04/16 17:14 Throat Group A Strep Rapid Antigen - Final IMAGING - summarized: Head CT: Normal noncontrast CT of the brain. Pelvic xray: Osteopenia is limiting this exam. The alignment is satisfactory. Both hip joints appear to be intact. No gross fracture is identified. 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 Around 4pm this afternoon she began to become suspicious of the hospital staff, saying the hospital was "creepy," c/o "men in blue shirts bringing sodas, bags of ice, trays of drinks and making cocktails in her room and then carrying out the trays." There were EMS with blue shirts who came to transport her roomate out around this time as well as housekeeping who came in with large white bags filled with linen, around this time the afternoon beverage cart is brought in the hallway offering sodas, teas/coffee to patients. When asked if these were the people she was referring to, she was adamant that there were "two young men with blue shirts making cocktails, with flashing lights and the whole room was turned into a dicso." She demanded to know what was going and felt the hospital staff were keeping her prisoner and she no longer felt safe at [facility]. She was lucid regarding conversation earlier in the day regarding having an MRI for further evaluation, she was oriented to person, place, time, events of past few days, and events at home prior to hospitalization. She recognized her nurse as well as her primary care team. Her behaviour was aggressive, noncooperative and she demanded to leave. She spoke with Dr. Benson regarding her care at [facility], he felt she was being taken care of appropriately and expressed to that the patient was not speaking like her usual self. Multiple attempts by family, Valentin and her , COLLETTE Torres, Dr. Prather and Dr. Wood were unsuccessful in convincing the patient to remain in the hospital despite the patient having difficulty walking, experiencing hallucinations, and with a possible ongoing fever (patient was sweating in bed but would not allow rectal temperatures or further physical examination). Family and patient expressed understanding of risks of signing out AMA. Available lab work and vitals summarized above. On admission she had elevated acetone and anion gap of 19 which was suspicious for starvation ketosis given patient's lack of po intake for 4 days. She was undergoing evaluation for acute fever, blood and urine cultures were drawn. Lungs were CTAB, patient denied dysuria, no diarrhea, no URI symptoms, low suspicion for infectious cause, given multiple joints with inflammation concern for inflammatory cause of fever, she was started on prednisone 5mg oral in the afternoon. Her rhabdomyolosis and TAVON was improving. As for ileus seen on portion of pelvic xray, she had tolerated eating and had a BM. She also had decubitus stage 2 ulcer. Minutes to complete discharge: 50 Discharge Summary Reason For Visit: SINUS TACHYCARDIA; RHABDOMYOLYSIS; DEHYDRATION Current Active Problems Dehydration (Acute) Hallucination, visual (Acute) Renal insufficiency (Acute) Rhabdomyolysis (Acute) Condition: Guarded - Instructions Referrals: Shaw Benson MD [Primary Care Provider] - Disposition: AGAINST MEDICAL ADVICE - Home Medications Comprehensive Discharge Medication List: Ambulatory Orders Atenolol [Atenolol] 25 mg PO DAILY 05/04/16 Bromocriptine Mesylate [Cycloset] 4.8 mg PO DAILY 05/04/16 Colesevelam HCl [Welchol (Nf)] 625 mg PO DAILY 05/04/16 Empagliflozin [Jardiance] 10 mg PO DAILY 05/04/16 Folic Acid [Folic Acid] 1 mg PO DAILY 05/04/16 Glipizide [Glipizide Xl] 10 mg PO DAILY 05/04/16 Levothyroxine [Synthroid -] 50 mcg PO DAILY 05/04/16 Lisinopril [Prinivil -] 2.5 mg PO DAILY 05/04/16 Milnacipran HCl [Savella] 100 mg PO DAILY 05/04/16 Nitroglycerin [Nitroglycerin] 0.4 mg SL PRN PRN 05/04/16 Nortriptyline HCl [Nortriptyline HCl] 25 mg PO DAILY 05/04/16 Rosuvastatin Calcium [Crestor] 10 mg PO HS 05/04/16 Sitagliptin Phos/Metformin HCl [Janumet Xr 50-1,000 mg Tablet] 2 tablet PO DAILY 05/04/16 This patient is new to me today: No Emergency Visit: No Critical Care patient: No - Discharge Referral Referred to [facility] Med [facility] No
[2016-05-06] MEDS ORDERED: SENNOSIDES 8.6MG TABLET (FP) PO SCH (22:00)
== END 2016-05-06 20:01 | disposition left against medical advice (07) | DRG 558 ==
LOC: JER 12:02 → JERBED 17:03 → J4W 20:14
PROVIDERS: ADMIT Internal Medicine; ATTEND Internal Medicine
DX: M62.82 Rhabdomyolysis (principal); N17.9 Acute kidney failure, unspecified; E86.0 Dehydration; R00.0 Tachycardia, unspecified; R44.1 Visual hallucinations; E11.9 Type 2 diabetes mellitus without complications; I10 Essential (primary) hypertension; R41.82 Altered mental status, unspecified; L89.152 Pressure ulcer of sacral region, stage 2; I25.10 Atherosclerotic heart disease of native coronary artery without angina pectoris; Z95.5 Presence of coronary angioplasty implant and graft; E03.9 Hypothyroidism, unspecified; M06.9 Rheumatoid arthritis, unspecified; M79.7 Fibromyalgia; Z79.84 Long term (current) use of oral hypoglycemic drugs; Z85.43 Personal history of malignant neoplasm of ovary; Z87.891 Personal history of nicotine dependence
CPT/HCPCS: 36415; 70450-TC; 71010-TC; 72170-TC; 80048; 80053; 81003; 81015; 82009; 82550; 82553; 83036; 83735; 83880; 84100; 84439; 84443; 84484; 85025; 86140; 86593; 87040; 87070; 87086; 87254; 87389; 87430; 87804; 93005; 93010; 97116-GP; 97161-GP; 99284-25; J1644